=== PATIENT | female | born 1940 | race Caucasian/White ===

== ENCOUNTER 2020-07-13 05:30 | Day surgery (SDC) | payer OTHER, MEDICAID, SELFPAY ==
[~2020-07-13] VITALS: Ht 157.5 cm; Wt 64.4 kg
[2020-07-13] MEDS ORDERED: CEFAZOLIN SOD 2 GM in D5W 50 ML IV ONE (07:00)
[2020-07-13] MEDS ORDERED: PROPOFOL 200MG/ 20ML VIAL (DIPRIVAN) IV ONE (09:31)
[2020-07-13] MEDS ORDERED: fentaNYL CITRATE/PF 100 MCG/2 ML AMP IVP ONE (09:31)
[2020-07-13] MEDS ORDERED: KETOROLAC TROMETHAMINE 30 MG VIAL IVP ONE (09:31)
[2020-07-13] MEDS ORDERED: DEXAMETHASONE SOD PHOSPHATE 4 MG/ML VIAL IVP ONE (09:31)
[2020-07-13] MEDS ORDERED: ONDANSETRON HCL 4 MG/2 ML VIAL IVP ONE (09:31)
[2020-07-13] MEDS ORDERED: LR 1,000 ML IV.SOLN IV ONE (09:31)
[2020-07-13] MEDS ORDERED: BUPIVACAINE /EPINEPHRINE/PF 0.25% 30 ML VIAL INJ ONE (09:31)
[2020-07-13] MEDS ORDERED: LR 1,000 ML IV SCH (10:00)
[2020-07-13] MEDS ORDERED: ONDANSETRON HCL 4 MG/2 ML VIAL IVP PRN (10:00)
[2020-07-13] MEDS ORDERED: HYDROmorphone 1 MG INJ. 1 MG/ML AMPUL IVP PRN (10:00)
[2020-07-13 10:05] VITALS: BP_SYST 145
== END 2020-07-13 12:15 | disposition home or self-care (01) ==
LOC: SDS 05:30 → SMU 05:30 → SDS 12:15
PROVIDERS: ATTEND Orthopaedic Surgery
DX: G56.01 Carpal tunnel syndrome, right upper limb (principal); I10 Essential (primary) hypertension; I25.10 Atherosclerotic heart disease of native coronary artery without angina pectoris; E11.9 Type 2 diabetes mellitus without complications; E03.9 Hypothyroidism, unspecified; Z98.890 Other specified postprocedural states
CPT/HCPCS: 29848; 36415; 82962; 87426; J0690; J1100; J1885; J2405; J2704; J3010; J3490; J7060; J7120